=== PATIENT | female | born 2000 | race Two or more races ===

== ENCOUNTER 2022-04-15 13:44 | Emergency (ER) | payer OTHER ==
[~2022-04-15] VITALS: Ht 149.9 cm; Wt 56.8 kg
[2022-04-15 15:07] VITALS: BP 111/78
[2022-04-15 15:39] LABS: Urine Bacteria FEW /hpf (None Seen); Urine Blood 1+ /uL (Negative); Urine Mucus FEW (None Seen); Urine Specific Gravity 1.023 (1.001-1.035); Urine WBC 2 /hpf (0 - 5)
[2022-04-15] MEDS ORDERED: HYDR50CA PO (16:11)
== END 2022-04-15 16:34 | disposition home or self-care (01) ==
LOC: ER 13:51
DX: F41.1 Generalized anxiety disorder (principal); Z32.02 Encounter for pregnancy test, result negative
CPT/HCPCS: 81001; 81025

== ENCOUNTER 2022-07-10 23:27 | Emergency (ER) | payer OTHER ==
[~2022-07-10] VITALS: Ht 149.9 cm; Wt 61.7 kg
[~2022-07-10 23:27] MED LIST: HYDR50CA PO
[2022-07-11] MEDS ORDERED: CEPH-510 PO (01:43)
[2022-07-11 02:38] VITALS: BP 113/85
== END 2022-07-11 02:39 | disposition home or self-care (01) ==
LOC: ER 23:27
DX: H83.02 Labyrinthitis, left ear (principal); Z79.899 Other long term (current) drug therapy

== ENCOUNTER 2022-11-01 11:45 | Emergency (ER) | payer OTHER ==
[~2022-11-01] VITALS: Ht 149.9 cm; Wt 60.3 kg
[~2022-11-01 11:45] MED LIST changes: +CEPH-510 PO
[2022-11-01 12:40] VITALS: BP 113/71
[2022-11-01 14:06] LABS: Urine Bacteria NONE SEEN /hpf (None Seen); Urine Blood 2+ /uL (Negative); Urine Mucus FEW (None Seen); Urine Specific Gravity 1.028 (1.001-1.035); Urine WBC 40 /hpf (0 - 5)
[2022-11-01 14:08] LABS: Eosinophils # (auto) 0.2 10 ^3/uL (0-0.8); Hemoglobin 13.4 g/dL (12.2-16.2); Lymphocytes # (auto) 1.9 10 ^3/uL (0.4-5.4); Monocytes # (auto) 0.3 10 ^3/uL (0-1.3)
[2022-11-01 14:11] LABS: Basophils # (auto) 0 10 ^3/uL (0-0.2); Eosinophils % (auto) 3.3 % (0.0-7.0); Hematocrit 40.3 % (36.0-46.0); Mean Corpuscular Hemoglobin 26.3 pg (28.0-32.0); Mean Corpuscular Hgb Conc. 33.3 g/dL (32.0-36.0); Mean Corpuscular Volume 78.8 fL (80.0-100.0); Monocytes % (auto) 6.6 % (0.0-12.0); Neutrophils # (auto) 2.6 10 ^3/uL (1.6-8.6); Neutrophils % (auto) 51.1 % (37.0-80.0); Nucleated Red Blood Cells % 0.2 %; Red Blood Cells 5.11 10^6/uL (4.0-5.20); Red Cell Distribution Width 14.6 % (11.8-14.3)
[2022-11-01 15:15] LABS: Albumin 4.3 g/dL (3.4-5.0); Calcium 9.3 mg/dL (8.5-10.1); Potassium 4.5 mmol/L (3.5-5.1)
[2022-11-01 15:24] LABS: BUN/Creatinine Ratio 15.7; Bilirubin, Total 0.4 mg/dL (0.2-1.0); Total Protein 8.2 g/dL (6.4-8.2)
== END 2022-11-01 17:55 | disposition home or self-care (01) ==
LOC: ER 11:45
DX: M25.512 Pain in left shoulder (principal); F41.8 Other specified anxiety disorders; Z79.899 Other long term (current) drug therapy
CPT/HCPCS: 36415; 80053; 81001; 81025; 85025; 93005